=== PATIENT | female | born 1955 | race Caucasian/White ===

== ENCOUNTER 2016-11-13 20:49 | Emergency (ER) | payer BC ==
[~2016-11-13] VITALS: Ht 157.5 cm; Wt 90.7 kg
[2016-11-13 21:16] VITALS: BP_SYST 164
--- NOTE | 2016-11-13 22:20 | NUR ---
Patient to ER bed H1 to gown for evaluation. Side rails up.
--- NOTE | 2016-11-13 22:22 | NUR ---
Nivia Reyes MECHANICS SUPERVISOR at bedside examining patient
--- NOTE | 2016-11-13 22:22 | NUR ---
Pt brought by self pt states she dropped a hammer on R foot, c/o pain 6/10, skin pink and warm, cap refill <3, VSS.
--- NOTE | 2016-11-13 22:22 | NUR ---
Note peter in EDM - 11/13/16 at 2241 by [email or web address] Pt brought by self pt states she drop a hammer on R foot, c/o pain 6/10, skin pink and warm, cap refill <3, VSS.
[2016-11-13] MEDS ORDERED: IBUPROFEN 800 MG TABLET PO ONE (22:30)
[2016-11-13 23:15] VITALS: BP_SYST 142
--- NOTE | 2016-11-13 23:15 | NUR ---
Patient given written and verbal discharge instructions and verbalizes understanding. ER ONCOLOGY TECHNICIAN Nivia discussed with patient the results and treatment provided. Patient in stable condition. ID arm band removed. Rx of naprosyn given. Patient educated on pain management and to follow up with PMD. Pain Scale 0/10. Opportunity for questions provided and answered.
== END 2016-11-13 23:15 | disposition home or self-care (01) ==
LOC: SED 20:49
DX: S90.111A Contusion of right great toe without damage to nail, initial encounter (principal); I10 Essential (primary) hypertension; W20.8XXA Other cause of strike by thrown, projected or falling object, initial encounter; Y93.89 Activity, other specified; Y92.89 Other specified places as the place of occurrence of the external cause; Y99.8 Other external cause status
CPT/HCPCS: 99284